=== PATIENT | female | born 1980 ===

== ENCOUNTER 2018-10-17 19:57 | Emergency (ER) | payer SELFPAY ==
[2018-10-17] MEDS ORDERED: Sodium Chloride 0.9% 1,000 ML IV ONE (20:27)
[2018-10-17] MEDS ORDERED: Sodium Chloride 0.9% 10 ML Syringe FLUSH PRN (20:27)
[2018-10-17] MEDS ORDERED: Sodium Chloride 0.9% 2.5 ML Syringe FLUSH PRN (20:27)
--- NOTE | 2018-10-17 20:40 | EDM.PDOC ---
ED HPI GENERAL MEDICAL PROBLEM - General Chief Complaint: Behavioral/Psych Stated Complaint: MENTAL HEALTH Time Seen by Provider: 10/17/18 20:20 - History of Present Illness INITIAL COMMENTS - FREE TEXT/NARRATIVE: HISTORY AND PHYSICAL: History of present illness: The patient is a 38-year-old female with a history of mild autism and ADHD for which she takes medications but says she has not had them for about a month and is new to the [place] area and living with at least 2 other roommates. The patient is here with police escort but is not in custody for calling them with concerns about unhappiness and stress in her life and potentially making some statements about being so unhappy. The police captain precinct reviewed with me the phone call record and the patient never said that she wanted to hurt herself but her girlfriend, with whom she is in a relationship as well as being roommates with, was the one who was yelling her concerns about the patient's mental state. The patient tells me that when she is not taking her medications, none of which are for depression or psychiatric issues other than the ADHD, she says that she gets "a little weird". She was seen yesterday in the clinic to get refills for her prescriptions currently does not have insurance and was not able to fill them. She did drink alcohol today, several beers and a shot ,and she says that when she got back to her apartment her girlfriend was very upset and the police say on their interview in the apartment the girlfriend seemed annoyed at her being under the influence of alcohol. There was less concern by the girlfriend for mental health but more annoyance at the fact that she was doing some things in the apartment that she did not like and that she had alcohol on board. There were never any statements about suicidal ideation or plan. In my dialogue with the patient she denies that she is suicidal and says that she is having difficulties adjusting to life here in [place] as she is from the [place] area. When specifically asked if she wanted to harm herself or if she had a planned she denied. She did the same with the police captain precinct prior to arrival. She does have a job that she is starting next week and she tells me that her son is getting in December and she is very excited about attending that wedding. She says she does not drink very often and she denies drug use. SHe says that she did not eat much today she is not vomiting or having diarrhea and has no systemic complaints of fever chills chest pain shortness of breath abdominal pain flank pain or urinary issues. She has a history of a hysterectomy and is not . She denies that she feels unsafe in her current living situation but the officer at bedside says that there seemed to be some tension in the relationship but not any physical or verbal cues to indicate a lack of safety for well-being. The officer at bedside says that at no point during his escort of this patient to the ED did she express any suicidal thoughts or any statements that were concerning but only stating that she is having a difficult time adjusting and has no resources here. The patient tells me she has never had a history of depression or she ever had thoughts of hurting herself or ever attempted to hurt herself. Again currently in the ED she says she is just having issues adjusting and with this evening's events feels a bit overwhelmed but again does not feel like she wants to hurt herself. Please see below addendum note as many things have changed now that the patient advocate/women's advocate is here Review of systems: As per history of present illness and below otherwise all systems reviewed and negative. Past medical history: As per history of present illness and as reviewed below otherwise noncontributory. Surgical history: As per history of present illness and as reviewed below otherwise noncontributory. Social history: No reported history of drug or alcohol abuse. Family history: As per history of present illness and as reviewed below otherwise noncontributory. Physical exam: General: Well-developed well-nourished female who is nontoxic and cooperative, evaluation. She is intermittently tearful but can be redirected. Vital signs were noted by me HEENT: Atraumatic, normocephalic, pupils reactive, negative for conjunctival pallor or scleral icterus, mucous membranes moist, throat clear, neck supple, nontender, trachea midline. Lungs: Clear to auscultation, breath sounds equal bilaterally, chest nontender. Heart: S1S2, regular rhythm and tachycardic rate on my evaluation, negative for clicks, rubs, or JVD. Abdomen: Soft, nondistended, nontender. Negative for masses or hepatosplenomegaly. Negative for costovertebral tenderness. Pelvis: Stable nontender. Genitourinary: Deferred. Rectal: Deferred. Extremities: Atraumatic, negative for cords or calf pain. Neurovascular unremarkable. Full range of motion without defects or deficits Neuro: Awake, alert, oriented. Cranial nerves II through XII unremarkable. Cerebellum unremarkable. Motor and sensory unremarkable throughout. Exam nonfocal. Diagnostics: Accu-Chek CBC CMP alcohol level UA UDS TSH EKG Tylenol and aspirin level Therapeutics: IV fluids Tylenol by mouth Ativan The police captain precinct at bedside, the primary care nurse and myself all feel patient is not at risk to harm herself but may have issues with her girlfriend and her recent alcohol use and we will explore options for other housing on a temporary basis until things have cooled down between her and her girlfriend. The police captain precinct again reiterates that the dynamic in the apartment was somewhat tense between them and when the patient came outside to go to the car with the officer she even expressed that she felt somewhat better being out of the apartment and that environment We've contacted the women's advocate who will come to discuss the patient's situation at home with her and help assist with care plan. The patient's girlfriend has arrived to the ED and was outside and was told that she could not come back to see the patient and my patient is also concerned and does not want her to come back either. I rechecked the waiting room and the girlfriend has left after talking to the police captain precinct. The women's Center advocate arrived and the patient was much more forthcoming and says that her bite and does keep her even and as she has not been on it she has been having more depression and tearfulness. She tells the advocate that when she is not taking her Vyvanse which she defines as a mental health medication she gets these thoughts. She denies to me that she is supposed to be on any other mental health medication but she conveyed to the advocate that she is on other medicines. She told the women's advocate that she does not want to live anymore and that she would use a knife to stab herself and she wants to go to sleep forever. When I went back in the room with the women's advocate the patient was again evasive and did not say those things to me. At this point the patient's safety is my primary concern and as she has been more open and forthcoming with the advocate versus me and the officer at bedside we will do the workup for transfer for immediate care and evaluation of these issues. Patient directly said to the patient advocate "I don't like life anymore. It's not worth it. I'm never going to be happy" After we have tried other closer institutions and there are no beds available we will are able to connect with [facility] and I discussed this case with Dr. Viramontes at 0010 a.m. Pending the receipt of some paperwork they will accept the patient for transfer and we can arrange transportation once we get the go ahead from there nursing staff in the psychiatric unit. The patient will have her IV removed and she does not need that and she is eating and drinking here in the ED. Impression: depression with suicidal ideation, recent alcohol use, situational reaction/ disorder Definitive disposition and diagnosis as appropriate pending reevaluation and review of above. - Related Data Allergies Allergy/AdvReac Type Severity Reaction Status Date / Time No Known Allergies Allergy Verified 10/17/18 20:00 Home Meds: Home Meds Lisdexamfetamine Dimesylate [Vyvanse] 1 cap PO DAILY 10/17/18 [History] Past Medical History Psychiatric History: Reports: ADHD, Autism - Past Surgical History Female Surgical History: Reports: Hysterectomy Social & Family History - Family History Family Medical History: Noncontributory - Tobacco Use Smoking Status *Q: Never Smoker - Recreational Drug Use Recreational Drug Use: No ED ROS GENERAL - Review of Systems Review Of Systems: ROS reveals no pertinent complaints other than HPI. ED EXAM, GENERAL - Physical Exam Exam: See Below (See dictation) Course - Vital Signs Last Recorded V/S: Last Vital Signs Temp 36.4 C 10/17/18 22:35 Pulse 83 10/17/18 22:35 Resp 17 10/17/18 22:35 BP 117/77 10/17/18 22:35 Pulse Ox 96 10/17/18 22:35 - Orders/Labs/Meds Orders: Active Orders 24 hr Category Date Time Status Blood Glucose Check, Bedside [RC] ONETIME Care 10/17/18 20:27 Active EKG Documentation Completion [RC] STAT Care 10/17/18 21:27 Active Sodium Chloride 0.9% [Saline Flush] Med 10/17/18 20:27 Active 10 ml FLUSH ASDIRECTED PRN Sodium Chloride 0.9% [Saline Flush] Med 10/17/18 20:27 Active 2.5 ml FLUSH ASDIRECTED PRN Saline Lock Insert [OM.PC] Stat Oth 10/17/18 20:27 Ordered Medication Orders Sodium Chloride (Saline Flush) 10 ml FLUSH ASDIRECTED PRN PRN Reason: Keep Vein Open Sodium Chloride (Saline Flush) 2.5 ml FLUSH ASDIRECTED PRN PRN Reason: Keep Vein Open Labs: Laboratory Tests 10/17/18 10/17/18 10/17/18 Range/Units 20:35 20:35 20:35 WBC 6.71 (4.0-11.0) K/uL RBC 4.40 (4.30-5.90) M/uL Hgb 14.3 (12.0-16.0) g/dL Hct 41.4 (36.0-46.0) % MCV 94.1 (80.0-98.0) fL MCH 32.5 H (27.0-32.0) pg MCHC 34.5 (31.0-37.0) g/dL RDW Std Deviation 44.5 (28.0-62.0) fl RDW Coeff of Eleni 13 (11.0-15.0) % Plt Count 288 (150-400) K/uL MPV 9.50 (7.40-12.00) fL Neut % (Auto) 62.7 (48.0-80.0) % Lymph % (Auto) 31.1 (16.0-40.0) % [place] % (Auto) 4.2 (0.0-15.0) % Eos % (Auto) 1.3 (0.0-7.0) % Baso % (Auto) 0.7 (0.0-1.5) % Neut # (Auto) 4.2 (1.4-5.7) K/uL Lymph # (Auto) 2.1 (0.6-2.4) K/uL [place] # (Auto) 0.3 (0.0-0.8) K/uL Eos # (Auto) 0.1 (0.0-0.7) K/uL Baso # (Auto) 0.1 (0.0-0.1) K/uL Nucleated RBC % 0.0 /100WBC Nucleated RBCs # 0 K/uL Sodium 142 (136-145) mmol/L Potassium 3.7 (3.5-5.1) mmol/L Chloride 103 (98-107) mmol/L Carbon Dioxide 23.8 (21.0-32.0) mmol/L BUN 9 (7.0-18.0) mg/dL Creatinine 0.8 (0.6-1.0) mg/dL Est Cr Clr Drug Dosing TNP Estimated GFR (MDRD) > 60.0 ml/min Glucose 93 (74-106) mg/dL Calcium 9.3 (8.5-10.1) mg/dL Total Bilirubin 0.2 (0.2-1.0) mg/dL AST 47 H (15-37) IU/L ALT 82 H (14-63) IU/L Alkaline Phosphatase 138 H (46-116) U/L Total Protein 8.7 H (6.4-8.2) g/dL Albumin 4.6 (3.4-5.0) g/dL Globulin 4.1 H (2.6-4.0) g/dL Albumin/Globulin Ratio 1.1 (0.9-1.6) TSH 3rd Generation 0.71 (0.36-3.74) uIU/mL Urine Color Urine Appearance Urine pH (5.0-8.0) Ur Specific [place] (1.001-1.035) Urine Protein (NEGATIVE) mg/dL Urine Glucose (UA) (NEGATIVE) mg/dL Urine Ketones (NEGATIVE) mg/dL Urine Occult Blood (NEGATIVE) Urine Nitrite (NEGATIVE) Urine Bilirubin (NEGATIVE) Urine Urobilinogen (<2.0) EU/dL Ur Leukocyte Esterase (NEGATIVE) Urine RBC (0-2/HPF) Urine WBC (0-5/HPF) Ur Epithelial Cells (NONE-FEW) Urine Bacteria (NEGATIVE) Urine Mucus (NONE-MOD) Salicylates 2.4 (0-20) mg/dL Urine Opiates Screen (NEGATIVE) Ur Oxycodone Screen (NEGATIVE) Urine Methadone Screen (NEGATIVE) Acetaminophen <2.0 ug/mL Ur Barbiturates Screen (NEGATIVE) Ur Phencyclidine Scrn (NEGATIVE) Ur Amphetamine Screen (NEGATIVE) U Methamphetamines Scrn (NEGATIVE) U Benzodiazepines Scrn (NEGATIVE) U Cocaine Metab Screen (NEGATIVE) U Marijuana (THC) Screen (NEGATIVE) Ethyl Alcohol 251 mg/dL 10/17/18 10/17/18 Range/Units 22:40 22:40 WBC (4.0-11.0) K/uL RBC (4.30-5.90) M/uL Hgb (12.0-16.0) g/dL Hct (36.0-46.0) % MCV (80.0-98.0) fL MCH (27.0-32.0) pg MCHC (31.0-37.0) g/dL RDW Std Deviation (28.0-62.0) fl RDW Coeff of Eleni (11.0-15.0) % Plt Count (150-400) K/uL MPV (7.40-12.00) fL Neut % (Auto) (48.0-80.0) % Lymph % (Auto) (16.0-40.0) % [place] % (Auto) (0.0-15.0) % Eos % (Auto) (0.0-7.0) % Baso % (Auto) (0.0-1.5) % Neut # (Auto) (1.4-5.7) K/uL Lymph # (Auto) (0.6-2.4) K/uL [place] # (Auto) (0.0-0.8) K/uL Eos # (Auto) (0.0-0.7) K/uL Baso # (Auto) (0.0-0.1) K/uL Nucleated RBC % /100WBC Nucleated RBCs # K/uL Sodium (136-145) mmol/L Potassium (3.5-5.1) mmol/L Chloride (98-107) mmol/L Carbon Dioxide (21.0-32.0) mmol/L BUN (7.0-18.0) mg/dL Creatinine (0.6-1.0) mg/dL Est Cr Clr Drug Dosing Estimated GFR (MDRD) ml/min Glucose (74-106) mg/dL Calcium (8.5-10.1) mg/dL Total Bilirubin (0.2-1.0) mg/dL AST (15-37) IU/L ALT (14-63) IU/L Alkaline Phosphatase (46-116) U/L Total Protein (6.4-8.2) g/dL Albumin (3.4-5.0) g/dL Globulin (2.6-4.0) g/dL Albumin/Globulin Ratio (0.9-1.6) TSH 3rd Generation (0.36-3.74) uIU/mL Urine Color YELLOW Urine Appearance CLEAR Urine pH 5.5 (5.0-8.0) Ur Specific [place] <= 1.005 (1.001-1.035) Urine Protein NEGATIVE (NEGATIVE) mg/dL Urine Glucose (UA) NEGATIVE (NEGATIVE) mg/dL Urine Ketones NEGATIVE (NEGATIVE) mg/dL Urine Occult Blood TRACE-INTACT H (NEGATIVE) Urine Nitrite NEGATIVE (NEGATIVE) Urine Bilirubin NEGATIVE (NEGATIVE) Urine Urobilinogen 0.2 (<2.0) EU/dL Ur Leukocyte Esterase NEGATIVE (NEGATIVE) Urine RBC NONE SEEN (0-2/HPF) Urine WBC 0-1 (0-5/HPF) Ur Epithelial Cells RARE (NONE-FEW) Urine Bacteria RARE (NEGATIVE) Urine Mucus LIGHT (NONE-MOD) Salicylates (0-20) mg/dL Urine Opiates Screen NEGATIVE (NEGATIVE) Ur Oxycodone Screen NEGATIVE (NEGATIVE) Urine Methadone Screen NEGATIVE (NEGATIVE) Acetaminophen ug/mL Ur Barbiturates Screen NEGATIVE (NEGATIVE) Ur Phencyclidine Scrn NEGATIVE (NEGATIVE) Ur Amphetamine Screen NEGATIVE (NEGATIVE) U Methamphetamines Scrn NEGATIVE (NEGATIVE) U Benzodiazepines Scrn NEGATIVE (NEGATIVE) U Cocaine Metab Screen NEGATIVE (NEGATIVE) U Marijuana (THC) Screen NEGATIVE (NEGATIVE) Ethyl Alcohol mg/dL Meds: Medications Generic Name Dose Route Start Last Admin Trade Name Freq PRN Reason Stop Dose Admin Sodium Chloride 10 ml 10/17/18 20:27 Saline Flush FLUSH ASDIRECTED PRN Keep Vein Open Sodium Chloride 2.5 ml 10/17/18 20:27 Saline Flush FLUSH ASDIRECTED PRN Keep Vein Open Discontinued Medications Generic Name Dose Route Start Last Admin Trade Name Freq PRN Reason Stop Dose Admin Acetaminophen 650 mg 10/17/18 22:03 10/17/18 22:09 Tylenol PO 10/17/18 22:04 650 mg NOW ONE Administration Sodium Chloride 1,000 mls @ 999 mls/hr 10/17/18 20:27 10/17/18 20:39 Normal Saline IV 10/17/18 21:27 999 mls/hr STAT ONE Administration Lorazepam 1 mg 10/17/18 22:03 10/17/18 22:11 Ativan IVPUSH 10/17/18 22:04 1 mg ONETIME ONE Administration Ondansetron HCl 4 mg 10/17/18 21:43 10/17/18 21:49 Zofran IVPUSH 10/17/18 21:44 4 mg ONETIME ONE Administration Departure - Departure Time of Disposition: 00:26 Disposition: DC/Tfer to Psych Hosp/Unit 65 Condition: Good Clinical Impression: Depressive disorder, Suicidal ideation - Discharge Information Referrals: PCP,None [Primary Care Provider] - Forms: ED Department Discharge - My Orders Last 24 Hours: My Active Orders 10/17/18 20:27 Blood Glucose Check, Bedside [RC] ONETIME Sodium Chloride 0.9% [Saline Flush] 10 ml FLUSH ASDIRECTED PRN Sodium Chloride 0.9% [Saline Flush] 2.5 ml FLUSH ASDIRECTED PRN Saline Lock Insert [OM.PC] Stat 10/17/18 21:27 EKG Documentation Completion [RC] STAT - Assessment/Plan Last 24 Hours: My Active Orders 10/17/18 20:27 Blood Glucose Check, Bedside [RC] ONETIME Sodium Chloride 0.9% [Saline Flush] 10 ml FLUSH ASDIRECTED PRN Sodium Chloride 0.9% [Saline Flush] 2.5 ml FLUSH ASDIRECTED PRN Saline Lock Insert [OM.PC] Stat 10/17/18 21:27 EKG Documentation Completion [RC] STAT
[2018-10-17] MEDS ORDERED: Ondansetron 4 MG/2 ML SDV IVPUSH ONE (21:43)
[2018-10-17] MEDS ORDERED: LORazepam 2 MG/ML SDV IVPUSH ONE (22:03)
[2018-10-17] MEDS ORDERED: Acetaminophen 325 MG Tab PO ONE (22:03)
[2018-10-17 22:05] LABS: CHLORIDE,CL 103 mmol/L (98-107); SODIUM,NA 142 mmol/L (136-145)
[2018-10-17 22:18] LABS: ACETAMINOPHEN <2.0 ug/mL
[2018-10-18] MEDS ORDERED: LORazepam 1 MG Tab PO ONE (00:43)
== END 2018-10-18 02:05 ==
LOC: MW.ED 19:57
DX: F32.9 Major depressive disorder, single episode, unspecified (principal); F90.9 Attention-deficit hyperactivity disorder, unspecified type; Z79.899 Other long term (current) drug therapy
CPT/HCPCS: 36415; 80053; 80305; 81001; 84443; 85025; 93005; 96361; 96374; 96375; 99285; A9270; G0480; J2060; J2405; J7040; 82962; 99284